=== PATIENT | female | born 1980 | race Caucasian/White ===

== ENCOUNTER 2020-07-03 12:13 | Emergency (ER) | payer OTHER, MEDICAID, SELFPAY ==
[2020-07-03 12:18] VITALS: BP 117/77; PULSE 84; RESP 14; TEMP 36.8; O2SAT 100; BMI 24.7
[2020-07-03 12:20] VITALS: O2SAT 100
[2020-07-03 12:21] VITALS: BP 117/77; PULSE 74; O2SAT 100
--- NOTE | 2020-07-03 12:30 | DI.US.S_ITS ---
PROCEDURE: US OB <= 14 WEEKS FETUS COMPARISON: None. INDICATIONS: BLEEDING. ?MISCARRIAGE IN APRIL FINDINGS: Uterus measures 8.3 x 4.5 by 3.1 cm. Endometrium measures 4.5 mm. There is no visualized intrauterine . Endometrium demonstrates no areas of increased vascularity which would suggest retained products of conception. Nabothian cysts are present at the cervix. Right ovary measures 36 x 19 x 17 mm. Left ovary measures 37 x 17 x 20 mm. No free fluid is identified. IMPRESSION: 1. No visualized intra or extra uterine . No visualized retained products of conception. Dictated by: Kate De Santiago M.D. on 07/03/2020 at 12:35 Approved by: Kate De Santiago M.D. on 07/03/2020 at 12:36
[2020-07-03 12:46] LABS: Amorphous Sediment Urine 1+; RBC Urine 0-1/HPF (0-5/HPF); Squamous Epithelial Cell Urine 0-1 /HPF (0-5/HPF); WBC Urine 0-1/HPF (0-5/HPF)
[2020-07-03 12:47] LABS: Add Manual Diff / Slide Review NO; Basophils Absolute Auto 100 /uL (0-100); Basophils Percent Auto 0.7 % (0-2); Eosinophils Absolute Auto 200 /uL (0-450); Eosinophils Percent Auto 2.6 % (2-4); Hematocrit 39.5 % (36-46); Hemoglobin 13.4 g/dL (12.0-16.0); Lymphocytes Absolute Auto 2500 /uL (1100-4500); Lymphocytes Percent Auto 26.9 % (25-40); Mean Corpuscular HGB Conc 33.8 % (30-36); Mean Corpuscular Hemoglobin 29.8 PG (26-34); Mean Corpuscular Volume 88.1 fL (80-100); Monocytes Absolute Auto 600 /uL (0-900); Monocytes Percent Auto 6.5 % (3-14); Neutrophils Absolute Auto 5800 /uL (1500-7000); Neutrophils Percent Auto 63.3 % (50-75); Platelet Count 391 X10^3/uL (150-400); Red Blood Cell Count 4.49 X10^6/uL (4.0-5.2); Red Cell Distribution Width 13.1 % (11.6-14.8); White Blood Cell Count 9.2 X10^3/uL (4.5-11.0)
[2020-07-03 12:47] LABS: Bacteria Urine Occasional (0-1); Culture Indicated Urine Cult Not Indicated; Mucus Urine 1+ (Negative)
[2020-07-03 12:58] LABS: Alanine Aminotransferase 38 IU/L (<35); Albumin 4.8 g/dL (3.5-5.0); Albumin Globulin Ratio 1.5 (1.0-2.8); Alkaline Phosphatase 47 U/L (38-126); Aspartate Aminotransferase 38 IU/L (14-36); Bilirubin Total 0.3 mg/dL (0.2-1.3); Blood Urea Nitrogen 12 mg/dL (7-17); Carbon Dioxide 29 mmol/L (22-32); Chloride 103 mmol/L (98-107); Estimated Glomerular Filt Rate > 60.0 mL/min (>60); Globulin 3.1 g/dL (1.7-4.1); Glucose 105 mg/dL (70-100); HEMOLYSIS < 15 (0-50); Sodium 140 mmol/L (137-145); Total Protein 7.9 g/dL (6.3-8.2)
--- NOTE | 2020-07-03 13:12 | ED.PREGNANCY ---
HPI - <KEV Ríos- - Last Filed: 07/03/20 14:47> General Chief complaint: Vaginal Bleeding Stated complaint: BLEEDING Time Seen by Provider: 07/03/20 12:15 Source: patient and family Mode of arrival: Ambulatory Limitations: no limitations History of Present Illness HPI Narrative: The patient is a 40-year-old female nonsmoker who presents with a chief complaint of vaginal bleeding during . She states that she thinks her last menstrual period was in May at some point but has not been keeping track. She states that she had positive urine test x2 on Thursday at home. She had some spotting yesterday interspersed with slightly stronger bleeding. No clots. She is not wearing a pad, states it is on the toilet paper when she wipes. She has diffuse cramping in her lower abdomen. No fevers nausea vomiting or diarrhea. The patient does think that she had a miscarriage in April, never saw a healthcare provider or material control supervisor for follow-up. She states that that point she had severe cramping and bleeding. Related Data Allergies Allergy/AdvReac Type Severity Reaction Status Date / Time Penicillins Allergy Verified 07/03/20 12:22 Review of Systems <[facility] - Last Filed: 07/03/20 14:47> Review of Systems Narrative: GENERAL: Denies chills, fatigue, malaise, fever, sweats. HEENT: Denies sinus pain, ear pain, sore throat, difficulty swallowing, dizziness. RESPIRATORY: Denies dyspnea, cough, wheezing, hemoptysis, sputum. CARDIOVASCULAR: Denies chest pain, palpitations, orthopnea, edema, GASTROINTESTINAL: See HPI : See HPI MUSCULOSKELETAL: denies weakness, joint pain, or bony pain SKIN: Denies rash, skin lesions, or other NEUROLOGIC: Denies weakness, headache, numbness, change in speech, confusion, seizures, incoordination. PSYCHIATRIC: No concerning psychosocial issues. 12 point review of systems is negative except for those stated above Exam <JANAY Ríos - Last Filed: 07/03/20 14:47> Narrative Exam Narrative: GENERAL: This is a well-nourished, well-developed patient, in no acute distress with at bedside HEAD: Atraumatic. Normocephalic. No temporal or scalp tenderness. EYES: Pupils equal round and reactive. Extraocular motions intact. No scleral icterus. No injection or drainage. ENT: Nose without bleeding, purulent drainage or septal hematoma. Wearing a mask. Airway patent. NECK: Trachea midline. No JVD or lymphadenopathy. Supple, nontender, no meningeal signs. CARDIOVASCULAR: Regular rate and rhythm without murmurs, gallops, or rubs. RESPIRATORY: Clear to auscultation. Breath sounds equal bilaterally. No wheezes, rales, or rhonchi. No cough. No increased respiratory effort. No accessory muscle use GASTROINTESTINAL: Abdomen soft, diffuse tenderness to suprapubic palpation, nondistended. No hepato-splenomegaly, or palpable masses. No guarding. Active bowel sounds all 4 quadrants EXTREMITIES: No clubbing, cyanosis, or edema. No joint tenderness, effusion, or edema noted. BACK: Nontender without deformity or crepitance. No flank tenderness. NEURO: AOx3. SKIN: No rash or erythema on visible skin Initial Vital Signs Initial Vital Signs: Vital Signs Temperature 98.3 F 07/03/20 12:18 Pulse Rate 84 07/03/20 12:18 Respiratory Rate 14 07/03/20 12:18 Blood Pressure 117/77 07/03/20 12:18 Pulse Oximetry 100 07/03/20 12:18 <Vale Wilkerson DO - Last Filed: 07/04/20 07:19> Initial Vital Signs Initial Vital Signs: Vital Signs Temperature 98.3 F 07/03/20 12:18 Pulse Rate 84 07/03/20 12:18 Respiratory Rate 14 07/03/20 12:18 Blood Pressure 117/77 07/03/20 12:18 Pulse Oximetry 100 07/03/20 12:18 Scores <AMINA Ríos - Last Filed: 07/03/20 14:47> GCS Alejandra coma scale eye opening: Spontaneous Alejandra coma scale verbal response: Orientated Alejandra coma scale motor response: Obey commands Alejandra coma scale total score: 15 Course <AMINA Ríos - Last Filed: 07/03/20 14:47> Orders Ordered: ED Orders 07/03/20 12:17 Urine Microscopic Stat 07/03/20 12:30 US OB <= 14 weeks fetus Stat ABO RH Type Stat Complete Blood Count AUTO DIFF Stat Comprehensive Metabolic Panel Stat HCG Quantitative /Beta subunit Stat Vital Signs Vital signs: Vital Signs - 8 hr 07/03/20 12:18 07/03/20 12:20 07/03/20 12:21 Temperature 98.3 F Pulse Rate 84 74 Respiratory Rate 14 Blood Pressure 117/77 117/77 Pulse Oximetry 100 100 100 07/03/20 14:10 Temperature Pulse Rate 74 Respiratory Rate 16 Blood Pressure 95/52 L Pulse Oximetry 100 <Vale Wilkerson DO - Last Filed: 07/04/20 07:19> Orders Ordered: ED Orders 07/03/20 12:17 Urine Microscopic Stat 07/03/20 12:30 US OB <= 14 weeks fetus Stat ABO RH Type Stat Complete Blood Count AUTO DIFF Stat Comprehensive Metabolic Panel Stat HCG Quantitative /Beta subunit Stat Vital Signs Vital signs: Vital Signs - 8 hr 07/03/20 12:18 07/03/20 12:20 07/03/20 12:21 Temperature 98.3 F Pulse Rate 84 74 Respiratory Rate 14 Blood Pressure 117/77 117/77 Pulse Oximetry 100 100 100 07/03/20 14:10 Temperature Pulse Rate 74 Respiratory Rate 16 Blood Pressure 95/52 L Pulse Oximetry 100 MDM - OB/Uterine Contractions <JANAY RíosBC - Last Filed: 07/03/20 14:47> Lab Data Result diagrams: 07/03/20 12:30 07/03/20 12:30 Labs: Lab Results 07/03/20 07/03/20 07/03/20 Range/Units 12:17 12:30 12:30 WBC 9.2 (4.5-11.0) X10^3/uL RBC 4.49 (4.0-5.2) X10^6/uL Hgb 13.4 (12.0-16.0) g/dL Hct 39.5 (36-46) % MCV 88.1 (80-100) fL MCH 29.8 (26-34) PG MCHC 33.8 (30-36) % RDW 13.1 (11.6-14.8) % Plt Count 391 (150-400) X10^3/uL Neut % (Auto) 63.3 (50-75) % Lymph % (Auto) 26.9 (25-40) % Letcher % (Auto) 6.5 (3-14) % Eos % (Auto) 2.6 (2-4) % Baso % (Auto) 0.7 (0-2) % Neut # (Auto) 5800 (9006-5287) /uL Lymph # (Auto) 2500 (4420-0054) /uL Letcher # (Auto) 600 (0-900) /uL Eos # (Auto) 200 (0-450) /uL Baso # (Auto) 100 (0-100) /uL Sodium 140 (137-145) mmol/L Potassium 4.0 (3.4-5.1) mmol/L Chloride 103 (98-107) mmol/L Carbon Dioxide 29 (22-32) mmol/L BUN 12 (7-17) mg/dL Creatinine 0.75 (0.52-1.04) mg/dL Estimated GFR > 60.0 (>60) mL/min BUN/Creatinine Ratio 16.0 (6-22) Glucose 105 H (70-100) mg/dL Calcium 10.0 (8.4-10.2) mg/dL Total Bilirubin 0.3 (0.2-1.3) mg/dL AST 38 H (14-36) IU/L ALT 38 H (<35) IU/L Alkaline Phosphatase 47 (38-126) U/L Total Protein 7.9 (6.3-8.2) g/dL Albumin 4.8 (3.5-5.0) g/dL Globulin 3.1 (1.7-4.1) g/dL Albumin/Globulin Ratio 1.5 (1.0-2.8) HCG, Quant < 2.4 mIU/mL Urine RBC 0-1/hpf (0-5/HPF) Urine WBC 0-1/hpf (0-5/HPF) Ur Squamous Epith Cells 0-1 /hpf (0-5/HPF) Amorphous Sediment 1+ Urine Bacteria Occasional (0-1) (None) Urine Mucus 1+ H (Negative) Ur Culture Indicated? Cult not indicated Blood Type 07/03/20 Range/Units 12:30 WBC (4.5-11.0) X10^3/uL RBC (4.0-5.2) X10^6/uL Hgb (12.0-16.0) g/dL Hct (36-46) % MCV (80-100) fL MCH (26-34) PG MCHC (30-36) % RDW (11.6-14.8) % Plt Count (150-400) X10^3/uL Neut % (Auto) (50-75) % Lymph % (Auto) (25-40) % Letcher % (Auto) (3-14) % Eos % (Auto) (2-4) % Baso % (Auto) (0-2) % Neut # (Auto) (7252-5013) /uL Lymph # (Auto) (9619-2309) /uL Letcher # (Auto) (0-900) /uL Eos # (Auto) (0-450) /uL Baso # (Auto) (0-100) /uL Sodium (137-145) mmol/L Potassium (3.4-5.1) mmol/L Chloride (98-107) mmol/L Carbon Dioxide (22-32) mmol/L BUN (7-17) mg/dL Creatinine (0.52-1.04) mg/dL Estimated GFR (>60) mL/min BUN/Creatinine Ratio (6-22) Glucose (70-100) mg/dL Calcium (8.4-10.2) mg/dL Total Bilirubin (0.2-1.3) mg/dL AST (14-36) IU/L ALT (<35) IU/L Alkaline Phosphatase (38-126) U/L Total Protein (6.3-8.2) g/dL Albumin (3.5-5.0) g/dL Globulin (1.7-4.1) g/dL Albumin/Globulin Ratio (1.0-2.8) HCG, Quant mIU/mL Urine RBC (0-5/HPF) Urine WBC (0-5/HPF) Ur Squamous Epith Cells (0-5/HPF) Amorphous Sediment Urine Bacteria (None) Urine Mucus (Negative) Ur Culture Indicated? Blood Type B Positive Point of Care Testing Test Results Negative Urine Dip Bedside Urine Glucose Negative Bedside Urine Bilirubin - Negative Bedside Urine Ketone - Negative Urine Specific [place] 1.020 Bedside Urine Occult Blood + Bedside Urine pH 6 Bedside Urine Protein - Negative Bedside Urine Urobilinogen - Negative Bedside Urine Nitrite - Negative Bedside Urine Leukocytes - Negative Esterase Imaging Data US - INSTRUCTIONAL PARAPROFESSIONAL: Radiologist's Impression: [address] [place] [id number] ReportSigned Patient: Kathrine Mckeon GMR#: [id number]: [id number]:[id number]/Sex: 40 / FDate of Service: 07/03/20Loc: EDAccession Number: [id number] Procedure: US OB <= 14 weeks fetus Ordering Provider: Yuliana Malik PROCEDURE: US OB <= 14 WEEKS FETUS COMPARISON: None. INDICATIONS: BLEEDING. ?MISCARRIAGE IN APRIL FINDINGS: Uterus measures 8.3 x 4.5 by 3.1 cm. Endometrium measures 4.5 mm. There is no visualized intrauterine . Endometrium demonstrates no areas of increased vascularity which would suggest retained products of conception. Nabothian cysts are present at the cervix. Right ovary measures 36 x 19 x 17 mm. Left ovary measures 37 x 17 x 20 mm. No free fluid is identified. IMPRESSION: 1. No visualized intra or extra uterine . No visualized retained products of conception. Dictated by: Kate De Santiago M.D. on 07/03/2020 at 12:35 Approved by: Kate De Santiago M.D. on 07/03/2020 at 12:36 [facility] Narrative Medical decision making narrative: The patient is a 40-year-old female who presents with a chief complaint of vaginal bleeding during early . She did have 2 positive test at home on Thursday. However today her beta HCG is less than 2.4, indicating a non female. Given her complaint of a possible miscarriage in April, I did get an ultrasound to rule out any visualized retained products of conception. I discussed at length with the patient and her that she is not at this point time. Encouraged follow-up with primary care provider, strict ER return precautions her abdominal pain with fever, inability keep down fluids etcetera. Also discussed come back to the ER for severe bleeding. I do not know whether she had erroneous test at home or if she had a very rapid miscarriage, but recommended close follow-up with her primary care provider. Patient and have no questions or concerns upon discharge states understanding of return precautions as well as follow-up care. <Vale Wilkerson, DO - Last Filed: 07/04/20 07:19> Lab Data Labs: Lab Results 07/03/20 07/03/20 07/03/20 Range/Units 12:17 12:30 12:30 WBC 9.2 (4.5-11.0) X10^3/uL RBC 4.49 (4.0-5.2) X10^6/uL Hgb 13.4 (12.0-16.0) g/dL Hct 39.5 (36-46) % MCV 88.1 (80-100) fL MCH 29.8 (26-34) PG MCHC 33.8 (30-36) % RDW 13.1 (11.6-14.8) % Plt Count 391 (150-400) X10^3/uL Neut % (Auto) 63.3 (50-75) % Lymph % (Auto) 26.9 (25-40) % Letcher % (Auto) 6.5 (3-14) % Eos % (Auto) 2.6 (2-4) % Baso % (Auto) 0.7 (0-2) % Neut # (Auto) 5800 (5842-1312) /uL Lymph # (Auto) 2500 (2608-4765) /uL Letcher # (Auto) 600 (0-900) /uL Eos # (Auto) 200 (0-450) /uL Baso # (Auto) 100 (0-100) /uL Sodium 140 (137-145) mmol/L Potassium 4.0 (3.4-5.1) mmol/L Chloride 103 (98-107) mmol/L Carbon Dioxide 29 (22-32) mmol/L BUN 12 (7-17) mg/dL Creatinine 0.75 (0.52-1.04) mg/dL Estimated GFR > 60.0 (>60) mL/min BUN/Creatinine Ratio 16.0 (6-22) Glucose 105 H (70-100) mg/dL Calcium 10.0 (8.4-10.2) mg/dL Total Bilirubin 0.3 (0.2-1.3) mg/dL AST 38 H (14-36) IU/L ALT 38 H (<35) IU/L Alkaline Phosphatase 47 (38-126) U/L Total Protein 7.9 (6.3-8.2) g/dL Albumin 4.8 (3.5-5.0) g/dL Globulin 3.1 (1.7-4.1) g/dL Albumin/Globulin Ratio 1.5 (1.0-2.8) HCG, Quant < 2.4 mIU/mL Urine RBC 0-1/hpf (0-5/HPF) Urine WBC 0-1/hpf (0-5/HPF) Ur Squamous Epith Cells 0-1 /hpf (0-5/HPF) Amorphous Sediment 1+ Urine Bacteria Occasional (0-1) (None) Urine Mucus 1+ H (Negative) Ur Culture Indicated? Cult not indicated Blood Type 07/03/20 Range/Units 12:30 WBC (4.5-11.0) X10^3/uL RBC (4.0-5.2) X10^6/uL Hgb (12.0-16.0) g/dL Hct (36-46) % MCV (80-100) fL MCH (26-34) PG MCHC (30-36) % RDW (11.6-14.8) % Plt Count (150-400) X10^3/uL Neut % (Auto) (50-75) % Lymph % (Auto) (25-40) % Letcher % (Auto) (3-14) % Eos % (Auto) (2-4) % Baso % (Auto) (0-2) % Neut # (Auto) (5565-6426) /uL Lymph # (Auto) (5742-7926) /uL Letcher # (Auto) (0-900) /uL Eos # (Auto) (0-450) /uL Baso # (Auto) (0-100) /uL Sodium (137-145) mmol/L Potassium (3.4-5.1) mmol/L Chloride (98-107) mmol/L Carbon Dioxide (22-32) mmol/L BUN (7-17) mg/dL Creatinine (0.52-1.04) mg/dL Estimated GFR (>60) mL/min BUN/Creatinine Ratio (6-22) Glucose (70-100) mg/dL Calcium (8.4-10.2) mg/dL Total Bilirubin (0.2-1.3) mg/dL AST (14-36) IU/L ALT (<35) IU/L Alkaline Phosphatase (38-126) U/L Total Protein (6.3-8.2) g/dL Albumin (3.5-5.0) g/dL Globulin (1.7-4.1) g/dL Albumin/Globulin Ratio (1.0-2.8) HCG, Quant mIU/mL Urine RBC (0-5/HPF) Urine WBC (0-5/HPF) Ur Squamous Epith Cells (0-5/HPF) Amorphous Sediment Urine Bacteria (None) Urine Mucus (Negative) Ur Culture Indicated? Blood Type B Positive Point of Care Testing Test Results Negative Urine Dip Bedside Urine Glucose Negative Bedside Urine Bilirubin - Negative Bedside Urine Ketone - Negative Urine Specific [place] 1.020 Bedside Urine Occult Blood + Bedside Urine pH 6 Bedside Urine Protein - Negative Bedside Urine Urobilinogen - Negative Bedside Urine Nitrite - Negative Bedside Urine Leukocytes - Negative Esterase Discharge Plan Departure Patient Disposition: Home Clinical Impression: Possible , not yet confirmed, Vaginal bleeding Instructions: Dealing With Miscarriage, In-Home Tests: Your Questions Answered, DI for Miscarriage, DI for Vaginal Bleeding Activity Restrictions/Additional Instructions: Thank you for trusting us with your care today. As discussed, are blood work shows no evidence of . The ultrasound did not show any evidence of or retained products. As discussed, please follow-up with primary care provider in the next few days. Please come back to the emergency department for any acute concerns such as abdominal pain with fever, inability keep down fluids, severe bleeding etcetera etcetera Referrals: Ligia Pritchard PA-C [Non-Staff] - <aVle Wilkerson DO - Last Filed: 07/04/20 07:19> Cosign ED Attending Jolene Attestation: I was immediately available in the department for consultation. Documentation has been reviewed. I agree with assessment and plan.
[2020-07-03 13:15] LABS: HCG Quantitative /Beta subunit < 2.4 mIU/mL
[2020-07-03 14:10] VITALS: BP 95/52; PULSE 74; RESP 16; O2SAT 100
== END 2020-07-03 14:11 | disposition home or self-care (01) ==
PROVIDERS: Emergency Provider Nurse Practitioner Family
DX: N93.9 Abnormal uterine and vaginal bleeding, unspecified (principal); Z32.02 Encounter for pregnancy test, result negative
CPT/HCPCS: 76801; 76817; 80053; 81003; 81015; 81025; 84702; 85025; 86900; 86901; 99282; 99284